=== PATIENT | male | born 1980 | race Caucasian/White ===

== ENCOUNTER 2017-11-23 10:06 | Inpatient (IN) | payer SELFPAY ==
[2017-11-23 10:47] LABS: Base Excess-Venous -23.5 mmol/L (0 (+/- 2.5)); CO2 Tension (PvCO2) 17.6 mmHg (41.0-51.0); Calcium, Ionized 0.85 mmol/L (1.12-1.32); Hemoglobin - Calc 9.9 g/dL (12.0-18.0); O2 Tension (PvO2) 81.9 mmHg (35.0-45.0); T. Carbon Dioxide 5.5 mmol/L (1.0-85.0); pH (Venous) 7.059 (7.35-7.45); vO2 Saturation-calc 90.4 % (94-98)
[2017-11-23 11:00] LABS: BUN (Urea Nitrogen) 114 mg/dL (8.9-20.6); Calc. Creatinine Clearance 0 mL/min (70-130); Calcium 7.2 mg/dL (7.8-10.44); Chloride 98 mmol/L (98-107); Estimated GFR-MDRD 13; Potassium 4.2 mmol/L (3.5-5.1); Sodium 133 mmol/L (136-145)
[2017-11-23 11:03] LABS: Troponin I 0.273 ng/mL (< 0.028)
[2017-11-23 11:05] LABS: Carbon Dioxide Less than 8 mmol/L (22-29); Glucose 1130 mg/dL (70-105)
[2017-11-23] MEDS ORDERED: Potassium Chloride 20 MEQ in Lactated Ringer's 1,000 ML IV ONE ×2 (11:30→15:15)
[2017-11-23 12:28] LABS: Lactic Acid 3.9 mmol/L (0.5-2.2)
[2017-11-23 13:06] LABS: Mean Corpuscular HGB CONC 30.5 g/dL (32.0-36.0); Mean Corpuscular Hemoglobin 32.5 pg (27.0-31.0); Mean Platelet Volume 8.3 fL (7.4-10.4); Platelet Count 287 thou/uL (130-400); RBC Distribution Width 12.7 % (11.5-14.5); Red Blood Cell (RBC) Count 3.08 mill/uL (4.70-6.10); White Blood Cell (WBC) Count 27.2 thou/uL (4.8-10.8)
[2017-11-23 13:47] LABS: Actual Bicarbonate (HCO3a) 11.4 mEq/L (22-28); Analyzer IN Cardio ER; Base Excess (BEa) -16.1 mEq/L (-2.0 to +3.0); CO2 Tension 32.9 mmHg (35.0-45.0); Calcium, Ionized 1.06 mmol/L (1.12-1.30); Carboxyhemoglobin (COHb) 0.2 gm% (0.0-3.0); Hemoglobin (Hb) 10.4 g/dL (14.0-18.0); O2 Tension (PaO2) 84.2 mmHg (80.0-100.0); Potassium - ABG Lab 5.02 mmol/L (3.70-5.30); pH, Arterial 7.16 (7.35-7.45)
[2017-11-23 13:48] LABS: ALV-art Gradient 24.405 (0-20); Puncture Site RRA
[2017-11-23 13:53] LABS: Band 12 % (5-11); Lymphocytes 7 % (21-51); MDiff Complete? YES; Monocytes 4 % (0-10); Neutrophil 77 % (42-75); PLT Morphology Comment Appears Adequate
[2017-11-23 14:02] LABS: Troponin I 0.646 ng/mL (< 0.028)
--- NOTE | 2017-11-23 14:29 | HP ---
DATE OF ADMISSION: 11/23/2017 PRIMARY CARE PHYSICIAN: [facility] call admission. REASON FOR ADMISSION: Acute kidney failure, severe diabetic ketoacidosis. HISTORY OF PRESENT ILLNESS: A 37-year-old male who has a history of diabetes on insulin, who was initially evaluated at [place] emergency room where he was taken for altered mental status. His blood sugar was running very high. The patient is completely confused at this point in our emergency room and he is not cooperative with giving history. As per emergency room record, the patient was released from [facility]. He was also admitted at another hospital for similar problem. At the [place] emergency room, he had routine blood test done, which showed leukocytosis, macrocytosis. He had severe metabolic acidosis with DKA and severe hyperglycemia and acute kidney failure. His urine drug screen was positive for methamphetamine. The patient was given IV fluid at the [place] emergency room and insulin drip was started. At [place] emergency room, he was given calcium gluconate 1 g, albuterol nebulization, insulin drip, Zofran, IV fluid. He was also given Narcan. He had initially severe hyperkalemia with potassium 8.2. In our emergency room, we noted that he was hypotensive. He was getting fluid and insulin drip. The patient was taken to [place] emergency room by his friends for altered mental status and he was having ketones smell. We noted that the patient was persistently hypotensive and ER physician spoke with area operations manager and the patient is planned for admission to ICU. We noted that the patient was making urine through the catheter. PAST MEDICAL HISTORY: Diabetes type 1, on insulin. PAST SURGICAL HISTORY: The patient is not able to provide any history at this point, so unable to review. PAST PSYCHIATRIC HISTORY: The patient is not able to provide any psychiatric history, so unable to review. SOCIAL HISTORY: As per report, the patient was released from [facility]. He was also hospitalized at another hospital. He has amphetamine positive in his urine drug screen. He is not providing any more history at this point. FAMILY HISTORY: Unable to obtain from the patient at this point because of altered mental status. ALLERGIES: As per report, the patient is allergic to CLINDAMYCIN. CURRENT HOME MEDICATIONS: As per report, the patient is taking lisinopril at home. EMERGENCY ROOM COURSE: The patient was given hyperkalemia cocktail treatment at [place] emergency room, insulin drip was started, given IV fluid, Narcan and Zofran. The patient is given Ringer lactate IV fluid in our emergency room. REVIEW OF SYSTEM: All review of system tried to review with patient but unable to review due to encephalopathy. PHYSICAL EXAMINATION: VITAL SIGNS: Currently, blood pressure 89/42, pulse 95, respiratory rate 18, temperature 94.1, saturation 100% on room air, weight 81.6 kg. GENERAL: The patient is hypotensive, ill appearing, disoriented. HEAD: Normocephalic, atraumatic. EYES: Pupils round and reactive to light. Extraocular muscle intact. ENT: Dry mucous membrane. No oral lesion, no pharyngeal erythema, no exudate. NECK: Supple. No JVD, no thyromegaly, no carotid bruit. LUNGS: Clear to auscultation without any rhonchi or rales. CARDIAC: S1, S2 regular. No gross murmur elicited. No gallop, no rub. ABDOMEN: Soft, bowel sounds present, nontender, nondistended. No organomegaly , no mass, no suprapubic tenderness. BACK: Unremarkable. No CVA tenderness. GENITOURINARY: Plummer catheter in place, draining clear urine. EXTREMITIES: Upper extremities, passive movement of all joints are normal. Lower extremities, no edema. Good distal pulsation. SKIN: The patient does have multiple tattoos on his skin, but no rash. HEMATOLOGICAL: No lymphadenopathy. PSYCHIATRIC: Unable to assess at this point because the patient is not cooperative. NEUROLOGIC: He is moving all four limbs, is confused and disoriented, but I could not elicit any focal neurological deficit. SIGNIFICANT LABORATORY DATA: EKG done at [place] emergency room, which showed T-wave peaked nonspecific ST-T changes. Finding consistent with hyperkalemia. Chest x-ray based on my review, no acute cardiopulmonary process. CBC initially WBC 29.9, hemoglobin 11.1, platelets 339,000 and subsequently WBC 27.2, hemoglobin 10, platelets 287,000. ABG, pH 7.16, CO2 32.9 , O2 84.2, bicarbonate 11.4, saturation 94.2%. BMP, sodium 122, potassium 8.2, chloride 95, carbon dioxide less than 8, BUN 122, creatinine 5.93, glucose 1586 , calcium 8.4, phosphorus 14.1, magnesium 4.0. LFT, AST 63, ALT 53, alkaline phosphatase 163, albumin 4.0. Troponin 0.273. Urinalysis consistent with glucose, ketones positive. Urine drug screen positive for methamphetamine. Serum drug screen negative. ASSESSMENT AND PLAN: 1. Acute metabolic encephalopathy, likely due to underlying metabolic derangement with diabetic ketoacidosis, acute kidney failure and abnormal electrolytes as well as hyperglycemic hyperosmolar state. The patient does not have any focal neurological deficit. We will monitor and try to correct metabolic parameters. 2. Acute kidney failure, likely due to dehydration, secondary to osmotic diuresis. The patient will have urine sodium, urine creatinine, urine protein checked. Renal ultrasound will be obtained. Nephrology will be consulted. We will monitor renal function. We will avoid nephrotoxin agent. We will monitor input output chart. 3. Diabetic ketoacidosis with hyperglycemic hyperosmolar state. The patient will be admitted to CCU for close monitoring. We will start insulin drip and manage with diabetic ketoacidosis protocol orders. We will monitor BMP, electrolytes, ketones periodically and change IV fluid whenever blood sugar improves to dextrose solution to correct his ketosis. 4. Elevated anion gap metabolic acidosis. The patient may need bicarbonate. Nephrology is consulted. 5. Abnormal electrolytes. He has hyponatremia, hyperkalemia, hyperphosphatemia and hypermagnesemia, all related with severe dehydration and renal failure. We will monitor electrolytes closely and we are consulting Nephrology for management. 6. Elevated troponin, likely due to demand ischemia. We will monitor cardiac enzymes. Abnormal LFT. We will repeat LFT again tomorrow. We will check hepatitis screen. 7. Microcytic anemia. Will be given folic acid, vitamin B12 and thiamine therapy. 8. Leukocytosis, likely related with stress response from diabetic ketoacidosis. We will follow up on culture result. 9. Methamphetamine positive. The patient will be given counseling to avoid other illicit drug abuse. 10. Deep venous thrombosis prophylaxis, heparin 5000 units subcu twice daily. 11. Gastrointestinal prophylaxis, Protonix 40 mg IV daily. 12. Code status: The patient is full code. The patient does not have any surrogate decision maker. 13. NSTEMI: likely demand ischemia, will get echo, consult cardiology, continue aspirin, check lipid profile tomorrow Disposition plan based on clinical course. We are expecting the patient's stay in hospital more than 2 midnights. I have spent 35 minutes in the emergency room to provide critical care to this patient. RICHIE
[2017-11-23] MEDS ORDERED: Eucerin (Mineral Oil/Petrolatum,White) 30 gm Jar TOP PRN (15:21)
[2017-11-23] MEDS ORDERED: Milk Of Magnesia 30 ML UDCUP PO PRN (15:21)
[2017-11-23] MEDS ORDERED: Acetaminophen 325 MG TAB PO PRN (15:21)
[2017-11-23] MEDS ORDERED: Dextrose 5 %-0.45 % NaCl 1,000 ML IV PRN (15:21)
[2017-11-23] MEDS ORDERED: CCU Electrolyte Replacement 1 EACH IVPB ONE (15:21)
[2017-11-23] MEDS ORDERED: Loperamide HCl 2 MG CAP PO PRN (15:21)
[2017-11-23] MEDS ORDERED: Sodium Chloride 0.65% Nasal 44 ML BOT EA NARE PRN (15:21)
[2017-11-23] MEDS ORDERED: D5 1/2 NS w/20 mEq KCL 1,000 ML IV PRN (15:21)
[2017-11-23] MEDS ORDERED: Diabetic Tussin 200 MG/10 ML UDCUP PO PRN (15:21)
[2017-11-23] MEDS ORDERED: Loratadine 10 MG TAB PO PRN (15:21)
[2017-11-23] MEDS ORDERED: NS 0.9% w/ 20 MEQ KCL 1,000 ML IV PRN ×2 (15:21)
[2017-11-23] MEDS ORDERED: Ondansetron ODT 4 MG TAB PO PRN (15:21)
[2017-11-23] MEDS ORDERED: Chloraseptic Spray 180 ml Bottle PO PRN (15:21)
[2017-11-23] MEDS ORDERED: Artificial Tears 18 DROP/0.9 ML EA EYE PRN (15:21)
[2017-11-23] MEDS ORDERED: Metoclopramide HCl 10 MG/2 ML VIAL IVP PRN (15:21)
[2017-11-23] MEDS ORDERED: Sodium Chloride 0.9% 1,000 ML IV PRN ×4 (15:21)
[2017-11-23] MEDS ORDERED: Senokot 8.6 MG TAB PO PRN (15:21)
[2017-11-23] MEDS ORDERED: Potassium Chloride 40 MEQ in Premix Bag 1 BAG IVPB PRN (15:44)
[2017-11-23] MEDS ORDERED: Potassium Chloride 40 MEQ in Sodium Chloride 0.9% 250 ML 250 ML IVPB PRN (15:44)
[2017-11-23] MEDS ORDERED: Potassium Phosphate 9 MMOL in Sodium Chloride 0.9% 100 ML IVPB PRN (15:44)
[2017-11-23] MEDS ORDERED: Potassium Chloride 20 MEQ TAB PO PRN (15:44)
[2017-11-23] MEDS ORDERED: Potassium Phosphate 12 MMOL in Sodium Chloride 0.9% 250 ML 250 ML IV PRN (15:44)
[2017-11-23] MEDS ORDERED: Magnesium 2 GM/NS 0.9% 100 ML 2 GM in Premix Bag 1 BAG IVPB PRN (15:44)
[2017-11-23] MEDS ORDERED: Potassium Phosphate 15 MMOL in Sodium Chloride 0.9% 250 ML 250 ML IV PRN (15:44)
[2017-11-23] MEDS ORDERED: CCU ELECTROLYTE REPLACEMENT PROTOCOL FS PRN (15:44)
[2017-11-23] MEDS ORDERED: Magnesium Oxide 400 MG TAB PO PRN ×2 (15:44)
--- NOTE | 2017-11-23 16:39 | CON ---
DATE OF CONSULTATION: 11/23/2017 CARDIOLOGY CONSULTATION REASON FOR CONSULTATION: Elevated troponin. HISTORY OF PRESENT ILLNESS: Mr. Florentino is a 37-year-old white gentleman who comes to the hospital for altered mental status. [facility] and was taken to the [facility] [facility] as he was found confused. He has a history of diabetes insulin-dependent and he was found to have s ugars in the 1000 range with an anion gap metabolic acidosis and he was transferred over for treatmen t of DKA. He also had acute kidney injury and troponins were drawn and they were likely elevated. D rug screen was also positive for methamphetamines. Currently, he is confused. I do not know how con fused he really is. He was able to tell me where he was and his name without much hesitancy. When arabella traore asked him the date, he said 2019. PAST MEDICAL HISTORY: 1. Type 1 diabetes. 2. Per ER review, there is a history of apparently a CVA in the past and a cardiac stent as well. 3. Also, apparently a history of hypertension. PAST SURGICAL HISTORY: None per chart review. OUTPATIENT MEDICATIONS: Per chart review, only lisinopril 5 mg a day, but he is unable to tell me an ything more than or even confirm that lisinopril is one of his medications. ALLERGIES: CLINDAMYCIN apparently per chart review. FAMILY HISTORY: Unobtainable. SOCIAL HISTORY: Unobtainable, but he has had a positive urine drug screen for amphetamines. REVIEW OF SYSTEMS: Unobtainable as the patient is confused. PHYSICAL EXAMINATION: VITAL SIGNS: Temperature 94.1, respiration rate 18, blood pressure 90/42, pulse of 89, satting 100% on room air. GENERAL: Awake, but only oriented to person and place with some shaking with no distress. HEENT: Normocephalic, atraumatic. NECK: Supple. LUNGS: Clear. CARDIOVASCULAR: S1, S2. No S3, S4. No murmurs. ABDOMEN: Soft. Positive bowel sounds. EXTREMITIES: No edema. Very unkempt dirty nails and large blisters on both plantar aspects of the f eet. LABORATORY WORK: Reviewed. CBC with a white count of 27, hemoglobin of 10, hematocrit of 32, platel et count of 287,000. ABG was reviewed, pH is 7.1. Chemistries with a sodium of 133, potassium is 4. 2, chloride of 98, carbon dioxide less than 8, BUN of 114, creatinine of 4.86, glucose of 1130, lacti c acid of 3.9, calcium of 7.2. Troponin of 0.2 initially, up to 0.6 the second one. IMAGING: Chest x-ray was reviewed, no acute process. ASSESSMENT: 1. Elevated troponins: Likely demand ischemia from his diabetic ketoacidosis. 2. Diabetic ketoacidosis. Per primary team. 3. Metabolic acidosis. 4. Elevated white count. 5. Altered mentation. 6. Substance abuse. PLAN: Currently, his troponin elevation is minimal and unlikely to be an issue in his current clinic al status. We will get an echocardiogram to assess LV function and valvular structures. Otherwise, management of DKA per primary team.
[2017-11-23 17:18] VITALS: BMI 23.8
[2017-11-23] MEDS: Ondansetron HCl/PF 4 MG/2 ML Vial IVP PRN (17:27)
[2017-11-23] MEDS ORDERED: 1/2 NS w/KCL 20 mEq 1,000 ML IV SCH (17:45)
[2017-11-23 17:47] LABS: Anion Gap 23 mmol/L (10-20); BUN (Urea Nitrogen) 103 mg/dL (8.9-20.6); Calc. Creatinine Clearance 23 mL/min (70-130); Calcium 7.8 mg/dL (7.8-10.44); Carbon Dioxide 17 mmol/L (22-29); Chloride 108 mmol/L (98-107); Estimated GFR-MDRD 17; Phosphorus 5.1 mg/dL (2.3-4.7); Sodium 143 mmol/L (136-145)
[2017-11-23 17:53] LABS: Glucose 713 mg/dL (70-105)
--- NOTE | 2017-11-23 18:20 | ULT ---
ULTRASOUND RETROPERITONEUM COMPLETE: (RENAL) HISTORY: Acute renal failure. FINDINGS: The right kidney measures 11.5 x 5 x 5.5 cm. The left kidney measures 10.5 x 4.5 x 6 cm. Both kidne ys have normal cortical thickness and normal cortical echogenicity. There is no hydronephrosis. The re is a Plummer catheter in an empty urinary bladder. IMPRESSION: 1) Normal sonographic appearance of the kidneys. 2) Plummer catheter within empty bladder. [place] POS: LOLIS
[2017-11-23] MEDS: Sodium Chloride 0.45% 1,000 ML IV SCH ×2 (18:21→22:04)
[2017-11-23 21:29] LABS: Anion Gap 18 mmol/L (10-20); BUN (Urea Nitrogen) 94 mg/dL (8.9-20.6); Calc. Creatinine Clearance 27 mL/min (70-130); Calcium 7.6 mg/dL (7.8-10.44); Carbon Dioxide 21 mmol/L (22-29); Chloride 111 mmol/L (98-107); Estimated GFR-MDRD 20; Glucose 465 mg/dL (70-105); Potassium 4.8 mmol/L (3.5-5.1); Sodium 145 mmol/L (136-145)
[2017-11-23] MEDS: Heparin 5,000 UNITS/ML VIAL SC SCH (22:07)
--- NOTE | 2017-11-23 23:55 | CON ---
DATE OF CONSULTATION: 11/23/2017 Mr. Florentino is a 37-year-old male, who is not giving a great history, but can converse as long as he is continuously stimulated. He has a long history of type 1 diabetes. He says he was diagnosed at age 12. Apparently, he was re leased from [facility] recently and was taken to the [place] [facility] for confusion. He is found to be acidemic and hyperosmolar. He denied drug use, but had a drug screen positive for methamphetamines. PAST MEDICAL HISTORY: Remarkable for coronary artery disease with a stent in the past reportedly and hypertension. He denied smoking, drinking or drug use, but as I mentioned, his drug screen was positive. FAMILY HISTORY: Unknown. PHYSICAL EXAMINATION: VITAL SIGNS: Blood pressure is 113/49, heart rate is 99, respiratory rate is 30, oximetry is 96. HEENT: Pupils are equal. Sclerae is anicteric. He has extensive tattooing. LUNGS: His lungs are clear. HEART: Regular rhythm. ABDOMEN: Soft and nontender. EXTREMITIES: Without asymmetry. LABORATORY AND X-RAY FINDINGS: White count 27.2, hemoglobin 10, platelets 287,000. PH after lunch t myrtle 7.16, CO2 of 32, pO2 of 84, that was an arterial blood gas. Venous blood gas done 10:45 this mo rning was 7.05. Sodium 143, potassium 5, chloride 108, bicarbonate 17, BUN 103, creatinine of 4.06. Glucose was over 1000 in [place] reportedly. IMPRESSION: 1. Diabetic ketoacidosis. 2. Severe intravascular volume depletion with hyperosmolar state secondary to that with probably yoav e starvation, ketosis and hypoperfusion. Lactic acidosis mixed in. Plan would be to continue with an insulin drip and continue with aggressive hydration. There is no h urry to correct his blood glucose, and in fact, we should correct his blood glucose slowly. His 1720 blood glucose is 713. With ongoing hydration, this will continue to come down. His insulin drip wa s at 10 units an hour, I cut it back to 7 units an hour when he arrived in the Critical Care Unit. Critical care time 40 minutes.
--- NOTE | 2017-11-24 00:16 | CON ---
DATE OF CONSULTATION: 11/23/2017 CONSULTING PHYSICIAN: Cathy Amin MD REASON FOR CONSULTATION: Acute kidney injury. REASON FOR ADMISSION: Diabetic ketoacidosis. HISTORY OF PRESENT ILLNESS: A 37-year-old male with history of type 1 diabetes, on insulin, came to the hospital with above complaints of being weakness and slightly confused and was found to have DKA and also elevated creatinine and acute kidney injury, and Nephrology is consulted. The patient is sl ightly confused, was seen in ICU today. No nausea, vomiting. The patient's drug screen was positive for methamphetamine. No chest pain or palpitation reported. No shortness of breath. No nausea or vomiting. PAST MEDICAL HISTORY: Positive for type 1 diabetes. PAST SURGICAL HISTORY: None per records. HOME MEDICATIONS: Lisinopril and insulin. ALLERGIES: CLINDAMYCIN. SOCIAL HISTORY: The patient was released from alf and amphetamine-positive drug screen and tobacc o use present. FAMILY HISTORY: No history of kidney disease. REVIEW OF SYSTEMS: Could not be obtained as the patient is slightly confused and no family available . PHYSICAL EXAMINATION: GENERAL: This is a well-built male in no apparent distress. VITAL SIGNS: Temperature 98.1, pulse 94, respiratory rate 18, blood pressure 120/56. HEENT: Atraumatic, normocephalic. Oral mucosa dry. NECK: Supple. CARDIOVASCULAR: S1, S2 heard. Rate and rhythm are regular. RESPIRATORY: Clear. GASTROINTESTINAL: Abdomen is soft. MUSCULOSKELETAL: 1+ edema. DERMATOLOGIC: No skin rash. Tattoos present. NEUROLOGIC: Confused. LABORATORY DATA: Hemoglobin is 10.1, potassium 4.8, BUN is 94, creatinine is 3.5 from 4.8 initially, bicarbonate 21 from 17. ASSESSMENT AND PLAN: 1. Acute kidney injury. It seems like getting better with IV hydration. No acute indication for di alysis. 2. Hyperkalemia, getting better. 3. Metabolic acidosis, better. 4. Edema, controlled. 5. Anemia, mild. 6. Leukocytosis. 7. Diabetic ketoacidosis. Continue supportive care. 8. Hyperphosphatemia. 9. Hypocalcemia. Continue supportive care. No acute indication for dialysis. We will continue to monitor renal funct ion and continue hydration as tolerated.
[2017-11-24] MEDS: Ondansetron HCl/PF 4 MG/2 ML Vial IVP PRN ×2 (00:20→08:40)
[2017-11-24] MEDS: Sodium Chloride 0.45% 1,000 ML IV SCH ×3 (02:08→08:41)
[2017-11-24 05:42] LABS: Hemoglobin A1c 10.8 % (4.0-6.0)
[2017-11-24 06:03] LABS: Anion Gap 12 mmol/L (10-20); BUN (Urea Nitrogen) 75 mg/dL (8.9-20.6); Calc. Creatinine Clearance 37 mL/min (70-130); Calcium 7.5 mg/dL (7.8-10.44); Carbon Dioxide 24 mmol/L (22-29); Chloride 112 mmol/L (98-107); Estimated GFR-MDRD 28; Glucose 166 mg/dL (70-105); Magnesium 2.8 mg/dL (1.6-2.6); Potassium 4.2 mmol/L (3.5-5.1); Sodium 144 mmol/L (136-145)
[2017-11-24 06:21] LABS: HBCM Index 0.07 S/CO (0-0.79); HBSAg Index 0.21 S/CO (0-0.99); Hep A IgM AB Non-Reactive (NonReactive); Hep A IgM S/CO 0.13 S/CO (0-0.79); Hep B Surf Ag Non-Reactive S/CO (NonReactive); Hep C IgG Ab Non-Reactive (NonReactive); Hep C Index 0.04 S/CO (0-0.79); Hepatitis B Core IGM Abs Non-Reactive (NonReactive)
[2017-11-24 06:53] LABS: Hemoglobin 9.7 g/dL (14.0-18.0); Mean Corpuscular HGB CONC 32.8 g/dL (32.0-36.0); Mean Corpuscular Hemoglobin 31.7 pg (27.0-31.0); Mean Corpuscular Volume 96.8 fL (78.0-98.0); Mean Platelet Volume 7.1 fL (7.4-10.4); Platelet Count 258 thou/uL (130-400); RBC Distribution Width 12.9 % (11.5-14.5); Red Blood Cell (RBC) Count 3.05 mill/uL (4.70-6.10); White Blood Cell (WBC) Count 21.2 thou/uL (4.8-10.8)
[2017-11-24 08:24] LABS: Band 16 % (5-11); Eosinophils 1 % (0-10); Lymphocytes 7 % (21-51); MDiff Complete? YES; Monocytes 4 % (0-10); Neutrophil 72 % (42-75); PLT Morphology Comment Appears Adequate; Polychromasia SLIGHT = 2-3 cells (100X) (0-2/hpf)
[2017-11-24] MEDS: Heparin 5,000 UNITS/ML VIAL SC SCH ×2 (08:40→21:53)
[2017-11-24] MEDS: FLUoxetine HCl 20 MG CAP PO SCH (08:40)
[2017-11-24] MEDS: Folic Acid 1 MG TAB PO SCH (08:40)
[2017-11-24] MEDS: Cyanocobalamin (Vitamin B-12) 1,000 MCG TAB PO SCH (08:40)
[2017-11-24] MEDS ORDERED: Pantoprazole 40 MG VIAL IVP SCH (09:00)
--- NOTE | 2017-11-24 10:23 | PRG ---
DATE OF SERVICE: 11/24/2017 Dc Florentino is more alert. PHYSICAL EXAMINATION: VITAL SIGNS: Vital signs are stable. Heart rate is 102, oximetry is 94, blood pressure 138/79. Int lucas and output is reportedly negative 1818. He only has 731 mL reported in, but this really does not make sense given the IV rate yesterday was 250 mL per hour. LUNGS: Clear. HEART: Regular rhythm. ABDOMEN: Soft. LABORATORY DATA: White count is 21.2, hemoglobin 9.7, platelets 258. Electrolytes are normal. Anio n gap is 8, BUN 75, creatinine 2.57. It was 4.86 when he was admitted. IMPRESSION: 1. Severe intravascular volume depletion. 2. Hyperosmolar state on admission secondary to noncompliance with insulin. 3. Diabetic ketoacidosis secondary to noncompliance with insulin. 4. Methamphetamine present on drug screen yesterday morning. PLAN: Continue with inpatient insulin. He is probably adequately hydrated at this point. His IV fl uids can be cut back. He can be transferred out of the Critical Care Unit to a medical bed. His tanya al function should continue to improve. Prognosis is quite guarded given his hemoglobin A1c of 10.8 and his drug screen positive for methamphetamine.
[2017-11-24] MEDS ORDERED: Dextrose 5% in Water 1,000 ML IV PRN (10:52)
[2017-11-24] MEDS ORDERED: Dextrose 50% Abboject 50 ML SYRINGE SLOW IVP PRN (10:52)
--- NOTE | 2017-11-24 10:53 | PDOC.PN ---
- Subjective Encounter Start Date: 11/24/17 Encounter Start Time: 10:00 -: old records requested/rev Patient seen and examined. No new complaints. No overnight events no fever, no vomiting, denies abdominal pain - Objective Resuscitation Status: Resuscitation Status FULL:Full Resuscitation MAR Reviewed: Yes Vital Signs & Weight: Vital Signs (12 hours) Temp Pulse Ox 11/24/17 08:00 94 L 11/24/17 07:00 98.0 F 11/24/17 04:00 98.1 F 11/24/17 00:00 98.4 F Weight Weight 147 lb 11.355 oz Most Recent Monitor Data Heart Rate from ECG 108 NIBP 152/97 NIBP BP-Mean 115 Respiration from ECG 20 SpO2 97 I&O: 11/23/17 11/24/17 11/25/17 06:59 06:59 06:59 Intake Total 731 240 Output Total 2550 250 Balance -1819 -10 Result Diagrams: 11/24/17 05:17 11/24/17 05:17 Additional Labs: Accuchecks 11/24/17 11/24/17 11/24/17 10:32 08:37 06:23 POC Glucose 225 H 208 H 187 H 11/24/17 11/24/17 11/24/17 05:17 04:39 03:29 POC Glucose 162 H 176 H 189 H 11/24/17 11/24/17 11/24/17 02:31 01:31 00:29 POC Glucose 228 H 241 H 324 H 11/23/17 11/23/17 11/23/17 23:47 22:35 21:33 POC Glucose 287 H 359 H 415 H 11/23/17 11/23/17 11/23/17 20:35 19:42 18:25 POC Glucose 418 H 473 H 528 H 11/23/17 11/23/17 11/23/17 16:06 12:51 11:58 POC Glucose Greater than 550 H* Greater than 550 H* Greater than 550 H* 11/23/17 10:13 POC Glucose Greater than 550 H* EKG Reviewed by me: Yes (nsr) Phys Exam - Physical Examination Constitutional: NAD HEENT: PERRLA, moist MMs, sclera anicteric Neck: no JVD, supple Respiratory: no wheezing, no rales, no rhonchi Cardiovascular: RRR, no significant murmur, no rub Gastrointestinal: soft, non-tender, no distention, positive bowel sounds Musculoskeletal: no edema, pulses present Neurological: non-focal, normal sensation, moves all 4 limbs Psychiatric: normal affect, A&O x 3 Skin: no rash, normal turgor Dx/Plan (1) Abnormal LFTs Code(s): R94.5 - ABNORMAL RESULTS OF LIVER FUNCTION STUDIES Status: Acute (2) Abnormal blood electrolyte level Code(s): E87.8 - OTH DISORDERS OF ELECTROLYTE AND FLUID BALANCE, NEC Status: Acute (3) Acute kidney failure Status: Acute (4) Amphetamine abuse Code(s): F15.10 - OTHER STIMULANT ABUSE, UNCOMPLICATED Status: Acute (5) DKA, type 1 Code(s): E10.10 - TYPE 1 DIABETES MELLITUS WITH KETOACIDOSIS WITHOUT COMA Status: Acute (6) Demand ischemia of myocardium Code(s): I24.8 - OTHER FORMS OF ACUTE ISCHEMIC HEART DISEASE Status: Acute (7) Leucocytosis Code(s): D72.829 - ELEVATED WHITE BLOOD CELL COUNT, UNSPECIFIED Status: Acute (8) Severe dehydration Code(s): E86.0 - DEHYDRATION Status: Acute (9) Anxiety and depression Code(s): F41.9 - ANXIETY DISORDER, UNSPECIFIED; F32.9 - MAJOR DEPRESSIVE DISORDER, SINGLE EPISODE, UNSPECIFIED Status: Chronic (10) Diabetes type 1, controlled Code(s): E10.9 - TYPE 1 DIABETES MELLITUS WITHOUT COMPLICATIONS Status: Chronic (11) GERD (gastroesophageal reflux disease) Code(s): K21.9 - GASTRO-ESOPHAGEAL REFLUX DISEASE WITHOUT ESOPHAGITIS Status: Chronic (12) Macrocytic anemia Code(s): D53.9 - NUTRITIONAL ANEMIA, UNSPECIFIED Status: Chronic - Plan cont current plan of care * anion gap closed, now will dc insulin drip * will transfer to tele today * now start hyperglycemia protocol treatment * check accucheck q 4 hourly * start lantus 10 unit sc bid * repeat labs tomorrow * continue NS at 100 ml per hour * medication reviewed as below * symptomatic treatment * start 1800 kcal ada diet. Review of Systems - Review of Systems ENT: negative: Ear Pain, Ear Discharge, Nose Pain, Nose Discharge, Nose Congestion, Mouth Pain, Mouth Swelling, Throat Pain, Throat Swelling, Other Respiratory: negative: Cough, Dry, Shortness of Breath, Hemoptysis, SOB with Excertion, Pleuritic Pain, Sputum, Wheezing Cardiovascular: negative: chest pain, palpitations, orthopnea, paroxysmal nocturnal dyspnea, edema, light headedness, other Gastrointestinal: negative: Nausea, Vomiting, Abdominal Pain, Diarrhea, Constipation, Melena, Hematochezia, Other Genitourinary: negative: Dysuria, Frequency, Incontinence, Hematuria, Retention , Other Musculoskeletal: negative: Neck Pain, Shoulder Pain, Arm Pain, Back Pain, Hand Pain, Leg Pain, Foot Pain, Other - Medications/Allergies Allergies/Adverse Reactions: Allergies Allergy/AdvReac Type Severity Reaction Status Date / Time clindamycin Allergy Verified 11/23/17 17:31 STERIODS Allergy Severe THROAT Uncoded 11/24/17 07:07 CLOSES UP, PER PT Medications: Current Medications Acetaminophen (Tylenol) 650 mg PO Q4H PRN PRN Reason: Headache/Fever or Pain Artificial Tears (Tears Naturale) 0 drop EA EYE PRN PRN PRN Reason: Dry Eyes Cyanocobalamin (Vitamin B-12) 1,000 mcg PO DAILY [facility] Last Admin: 11/24/17 08:40 Dose: 1,000 mcg Fluoxetine HCl (Prozac) 40 mg PO DAILY [facility] Last Admin: 11/24/17 08:40 Dose: 40 mg Folic Acid (Folvite) 1 mg PO DAILY [facility] Last Admin: 11/24/17 08:40 Dose: 1 mg Guaifenesin (Robitussin Sf) 200 mg PO Q4H PRN PRN Reason: Cough Heparin Sodium (Porcine) (Heparin) 5,000 units SC BID [facility] Last Admin: 11/24/17 08:40 Dose: 5,000 units Dextrose/Sodium Chloride (D5 1/2 Ns) 1,000 mls @ 250 mls/hr IV .Q4H PRN; Protocol PRN Reason: Step 4 of DKA Protocol Potassium Chloride/Dextrose/Sod Cl (D5 1/2 Ns W/20 Meq Kcl) 1,000 mls @ 250 mls /hr IV .Q4H PRN; Protocol PRN Reason: Step 4 of DKA Protocol Last Admin: 11/24/17 04:58 Dose: 1,000 mls Insulin Human Regular 100 (units/ Sodium Chloride) 101 mls @ 0 mls/hr IVPB INF JOSE MIGUEL; Protocol Last Admin: 11/23/17 18:20 Dose: 101 mls Sodium Chloride (Normal Saline 0.9%) 1,000 mls @ 500 mls/hr IV .Q2H PRN; Protocol PRN Reason: Step 1 of DKA Protocol Sodium Chloride (Normal Saline 0.9%) 1,000 mls @ 1,000 mls/hr IV .Q1H PRN; Protocol PRN Reason: Step 1 of DKA Protocol Sodium Chloride (Normal Saline 0.9%) 1,000 mls @ 250 mls/hr IV .Q4H PRN; Protocol PRN Reason: SEE STEP 3 OF DKA PROTOCOL Sodium Chloride (Normal Saline 0.9%) 1,000 mls @ 500 mls/hr IV .Q2H PRN; Protocol PRN Reason: Step 2 of DKA Protocol Potassium Chloride/Sodium Chloride (Ns 0.9% W/ 20 Meq Kcl) 1,000 mls @ 500 mls/ hr IV .Q2H PRN; Protocol PRN Reason: Step 2 of DKA Protocol Potassium Chloride/Sodium Chloride (Ns 0.9% W/ 20 Meq Kcl) 1,000 mls @ 250 mls/ hr IV .Q4H PRN; Protocol PRN Reason: SEE STEP 3 OF DKA PROTOCOL Potassium Chloride 40 meq/ (Sodium Chloride) 270 mls @ 135 mls/hr IVPB ASDIR PRN PRN Reason: FOR SERUM K+ 2.5 - 3.5 Potassium Chloride 40 meq/ (Device) 100 mls @ 50 mls/hr IVPB ASDIR PRN PRN Reason: FOR SERUM K+ 2.5 - 3.5 Magnesium Sulfate 1 gm/ Sodium (Chloride) 102 mls @ 102 mls/hr IV PRN PRN PRN Reason: MAG LEVEL 1.4 - 2.0 Magnesium Sulfate 2 gm/ Device 100 mls @ 100 mls/hr IVPB ASDIR PRN PRN Reason: MAGNESIUM < 1.4 Potassium Phosphate 9 mmol/ (Sodium Chloride) 103 mls @ 25.75 mls/hr IVPB ASDIR PRN PRN Reason: Phosphate 1.0-1.8 Potassium Phosphate 12 mmol/ (Sodium Chloride) 254 mls @ 63.5 mls/hr IV ASDIR PRN PRN Reason: Serum phosphate 0.5-0.9 Potassium Phosphate 15 mmol/ (Sodium Chloride) 255 mls @ 63.75 mls/hr IV ASDIR PRN PRN Reason: Serum Phos < 0.5 Sodium Chloride (1/2 Normal Saline) 1,000 mls @ 250 mls/hr IV .Q4H [facility] Last Admin: 11/24/17 08:41 Dose: Not Given Loperamide HCl (Imodium) 2 mg PO PRN PRN PRN Reason: Diarrhea/Loose Stools Loratadine (Claritin) 10 mg PO DAILYPRN PRN PRN Reason: Sinus Symptoms Magnesium Hydroxide (Milk Of Magnesium) 30 ml PO DAILYPRN PRN PRN Reason: Constipation Magnesium Oxide (Magnesium Oxide) 400 mg PO BIDPRN PRN PRN Reason: FOR SERUM MAG 1.4 - 2.0 Magnesium Oxide (Magnesium Oxide) 800 mg PO PRN PRN PRN Reason: FOR SERUM MAG < 1.4 Metoclopramide HCl (Reglan) 5 mg IVP Q4H PRN PRN Reason: Nausea Mineral Oil/White Petrolatum (Eucerin Cream) 0 gm TOP BIDPRN PRN PRN Reason: Dry Skin Miscellaneous Medication (Phos-Nak) 1 pkt PO TIDPRN PRN PRN Reason: FOR PHOS LEVEL 1.0 - 1.8 Miscellaneous Medication (Phos-Nak) 2 pkt PO TIDPRN PRN PRN Reason: FOR PHOS LEVEL 0.5 - 1.0 Ccu Electrolyte (Replacement Protocol) 0 each FS PRN PRN PRN Reason: FOR ELECTROLYTE REPLACEMENT Ondansetron HCl (Zofran Odt) 4 mg PO Q6H PRN PRN Reason: Nausea/Vomiting Ondansetron HCl (Zofran) 4 mg IVP Q6H PRN PRN Reason: Nausea/Vomiting Last Admin: 11/24/17 08:40 Dose: 4 mg Pantoprazole Sodium (Protonix) 40 mg IVP DAILY [facility] Last Admin: 11/24/17 08:40 Dose: 40 mg Phenol (Chloraseptic [place] 180 Ml Bot) 0 ml PO PRN PRN PRN Reason: Sore Throat Potassium Chloride (K-Dur) 40 meq PO ASDIR PRN PRN Reason: FOR SERUM K+ 2.5 - 3.5 Potassium Chloride (Klor-Con) 40 meq PER TUBE ASDIR PRN PRN Reason: FOR SERUM K+ 2.5-3.5 Senna (Senokot) 2 tab PO HSPRN PRN PRN Reason: Constipation Sodium Chloride ([place] Nasal [place] 0.65%) 0 ml EA NARE QIDPRN PRN PRN Reason: Nasal Congestion Thiamine HCl (Thiamine) 100 mg PO DAILY JOSE MIGUEL Last Admin: 11/24/17 08:40 Dose: 100 mg
[2017-11-24] MEDS ORDERED: Insulin Glargine 10 UNITS in Pre-Filled Syringe 1 EACH SC SCH (11:00)
[2017-11-24] MEDS: Sodium Chloride 0.9% 1,000 ML IV SCH ×2 (11:53→21:53)
[2017-11-24] MEDS: HumaLOG 300 UNITS/3 ML VIAL SC PRN ×2 (14:59→21:54)
--- NOTE | 2017-11-24 15:16 | PDOC.CTH ---
Cardiology Progress Note - Subjective No new issues. - Objective Vital Signs Temp Pulse Ox 11/24/17 12:00 98.0 F 11/24/17 08:00 94 L 11/24/17 07:00 98.0 F 11/24/17 04:00 98.1 F Admit Weight 147 lb Weight 147 lb 11.355 oz 11/23/17 11/24/17 11/25/17 06:59 06:59 06:59 Intake Total 731 300 Output Total 2550 650 Balance -1819 -350 - Physical Examination General/Neuro: NAD Neck: no JVD present Lungs: CTA, unlabored respirations Heart: RRR Abdomen: NT/ND Extremities: other: (no edema) - Telemetry Telemetry Rhythm: S Tach - Labs Result Diagrams: 11/24/17 05:17 11/24/17 05:17 Troponin/CKMB Troponin I 0.646 ng/mL (< 0.028) H* 11/23/17 13:29 - Assessment/Plan 1. DKA. 2. NSTEMI, demand ischemia from DKA. PLAN: - Echocardiogram pending. - Continue Therapies for DKA.
--- NOTE | 2017-11-24 19:30 | PRG ---
DATE OF SERVICE: 11/24/2017 SUBJECTIVE: Patient was seen and examined at bedside and overnight events noted. Patient denies any shortness of breath or chest pain or palpitation. No history of nausea or vomiting or diarrhea or f ever or chills or cramps. OBJECTIVE: GENERAL: This is a well-built male in no apparent distress. VITAL SIGNS: Temperature 97, pulse 104, respiratory rate 18, blood pressure 140/84. HEENT: Atraumatic, normocephalic. Oral mucosa is moist. NECK: Supple CARDIOVASCULAR: S1, S2 heard. Rate and rhythm regular. RESPIRATORY: Clear to auscultation. GASTROINTESTINAL: Abdomen is soft. MUSCULOSKELETAL: No tenderness, no edema. DERMATOLOGIC: No skin rash. NEUROLOGIC: Alert, awake, and oriented x3. No focal neurologic deficits. Moving all the extremitie s. PSYCHIATRIC: Mood and affect normal. LABORATORY DATA: Potassium 4.2, BUN is 75, creatinine is 2.5. ASSESSMENT AND PLAN: 1. Acute kidney injury. Creatinine getting better. 2. Edema, controlled. 3. Hypertension, stable. 4. Diabetic ketoacidosis and metabolic acidosis. Labs are getting better. Continue current management. Avoid nephrotoxins. We will follow. Rule ou t infection.
[2017-11-24] MEDS ORDERED: Sodium Chloride 0.9% 30 ML ONE (20:39)
[2017-11-24] MEDS: Insulin Glargine 10 UNITS in Pre-Filled Syringe 1 EACH SC SCH (21:53)
[2017-11-25] MEDS: HumaLOG 300 UNITS/3 ML VIAL SC PRN ×3 (00:15→22:07)
[2017-11-25] MEDS: Ondansetron HCl/PF 4 MG/2 ML Vial IVP PRN (04:32)
[2017-11-25 05:56] LABS: #Lymphocytes 0.9 thou/uL (1.20-3.40); #Monocytes 0.7 thou/uL (0.11-0.59); #Neutrophils 9.5 thou/uL (1.40-6.50); %Basophils 0.1 % (0.0-1.0); %Eosinophils 0.1 % (0.0-10.0); %Neutrophils 85.8 % (42.0-75.0); Hemoglobin 10.6 g/dL (14.0-18.0); Mean Corpuscular HGB CONC 32.4 g/dL (32.0-36.0); Mean Platelet Volume 7.4 fL (7.4-10.4); Platelet Count 236 thou/uL (130-400); RBC Distribution Width 13.2 % (11.5-14.5); Red Blood Cell (RBC) Count 3.29 mill/uL (4.70-6.10); White Blood Cell (WBC) Count 11.1 thou/uL (4.8-10.8)
[2017-11-25 06:21] LABS: Anion Gap 12 mmol/L (10-20); BUN (Urea Nitrogen) 36 mg/dL (8.9-20.6); Calc. Creatinine Clearance 62 mL/min (70-130); Calcium 8.5 mg/dL (7.8-10.44); Carbon Dioxide 23 mmol/L (22-29); Chloride 114 mmol/L (98-107); Estimated GFR-MDRD 49; Glucose 231 mg/dL (70-105); Magnesium 2.3 mg/dL (1.6-2.6); Phosphorus 1.7 mg/dL (2.3-4.7); Potassium 5.2 mmol/L (3.5-5.1); Sodium 144 mmol/L (136-145)
[2017-11-25] MEDS: Sodium Chloride 0.9% 1,000 ML IV SCH (06:23)
[2017-11-25] MEDS ORDERED: SODIUM CHLORIDE IVPB SCH (07:00)
[2017-11-25] MEDS ORDERED: SODIUM PHOSPHATE IVPB SCH (07:00)
[2017-11-25] MEDS ORDERED: ADMIXTURE FEE IVPB SCH (07:00)
[2017-11-25] MEDS: Heparin 5,000 UNITS/ML VIAL SC SCH ×2 (09:30→22:03)
[2017-11-25] MEDS: FLUoxetine HCl 20 MG CAP PO SCH (09:31)
[2017-11-25] MEDS: Cyanocobalamin (Vitamin B-12) 1,000 MCG TAB PO SCH (09:31)
[2017-11-25] MEDS: Folic Acid 1 MG TAB PO SCH (09:31)
[2017-11-25] MEDS: Insulin Glargine 10 UNITS in Pre-Filled Syringe 1 EACH SC SCH ×2 (11:38→22:03)
[2017-11-25] MEDS: Sodium Chloride 0.45% 1,000 ML IV SCH (12:37)
[2017-11-25] MEDS ORDERED: Sodium Phosphate 30 MMOL in Sodium Chloride 0.9% 250 ML 250 ML IVPB SCH (16:00)
--- NOTE | 2017-11-25 18:09 | PDOC.CTH ---
Cardiology Progress Note - Subjective Doing better. Awake and answering questions appropriately. - Objective Vital Signs Temp Pulse Resp BP BP Pulse Ox 11/25/17 12:23 97.9 F 97 16 149/85 H 91 L 11/25/17 07:42 98.4 F 93 22 H 157/88 H 92 L Admit Weight 147 lb Weight 152 lb 12.8 oz 11/24/17 11/25/17 11/26/17 06:59 06:59 06:59 Intake Total 731 4382 Output Total 2550 3035 Balance -1819 1347 - Physical Examination General/Neuro: alert & oriented x3, NAD Neck: no JVD present Lungs: CTA, unlabored respirations Heart: RRR Abdomen: NT/ND Extremities: + edema B (1+) - Telemetry Telemetry Rhythm: NSR - Labs Result Diagrams: 11/25/17 05:14 11/25/17 05:14 Troponin/CKMB Troponin I 0.646 ng/mL (< 0.028) H* 11/23/17 13:29 - Assessment/Plan 1. DKA. 2. NSTEMI, demand ischemia from DKA. 3. CARLTON, improving. 4. Substance abuse PLAN: - Continue Therapies for DKA. - CV stable. Echo pending.
--- NOTE | 2017-11-25 18:55 | PRG ---
DATE OF SERVICE: 11/25/2017 SUBJECTIVE: Patient was seen and examined at bedside and overnight events noted. Patient denies any shortness of breath or chest pain or palpitation. No history of nausea or vomitin g or diarrhea or fever or chills or cramps. OBJECTIVE: GENERAL: This is a well-built male, in no apparent distress. VITAL SIGNS: Temperature 97.9, pulse 97, respiratory rate 16, blood pressure 149/85. HEENT: Atraumatic, normocephalic. Oral mucosa is moist. NECK: Supple. CARDIOVASCULAR: S1 and S2 heard. Rate and rhythm regular. RESPIRATORY: Clear to auscultation. GASTROINTESTINAL: Abdomen is soft. MUSCULOSKELETAL: No tenderness. No edema. DERMATOLOGIC: No skin rash. NEUROLOGIC: Alert and awake and oriented x3. No focal neurologic deficits. Moving all the extremit ies. PSYCHIATRIC: Mood and affect normal. LABORATORY DATA: Potassium 5.2, BUN 36, creatinine is 1.5, phosphorus is 1.7. ASSESSMENT AND PLAN: 1. Acute kidney injury. Creatinine is getting better. 2. Hypophosphatemia, replaced. 3. Hypertension. 4. Edema. 5. Diabetic ketoacidosis. 6. Substance abuse, counseled. 7. We will continue on supportive care as tolerated.
--- NOTE | 2017-11-25 19:07 | PDOC.PN ---
- Subjective Encounter Start Date: 11/25/17 Encounter Start Time: 10:00 Patient seen and examined for DKA. No new complaints. No overnight events - Objective Resuscitation Status: Resuscitation Status FULL:Full Resuscitation MAR Reviewed: Yes Vital Signs & Weight: Vital Signs (12 hours) Temp Pulse Resp BP BP Pulse Ox 11/25/17 16:37 98.2 F 96 18 178/108 H 96 11/25/17 12:23 97.9 F 97 16 149/85 H 91 L 11/25/17 07:42 98.4 F 93 22 H 157/88 H 92 L Weight Admit Weight 147 lb Weight 152 lb 12.8 oz Most Recent Monitor Data Heart Rate from ECG 100 NIBP 140/84 NIBP BP-Mean 102 Respiration from ECG 19 SpO2 92 I&O: 11/24/17 11/25/17 11/26/17 06:59 06:59 06:59 Intake Total 731 4382 Output Total 2550 3035 2500 Balance -1819 1347 -2500 Result Diagrams: 11/25/17 05:14 11/25/17 05:14 Additional Labs: Accuchecks 11/25/17 11/25/17 11/25/17 16:39 11:59 08:09 POC Glucose 165 H 198 H 218 H 11/25/17 11/25/17 11/24/17 04:36 00:11 20:21 POC Glucose 199 H 277 H 283 H EKG Reviewed by me: Yes (Tele SR) Phys Exam - Physical Examination Constitutional: NAD Respiratory: no wheezing, no rhonchi Cardiovascular: RRR, no rub Gastrointestinal: soft, non-tender, positive bowel sounds Musculoskeletal: no edema Neurological: moves all 4 limbs Dx/Plan - Plan DVT proph w/SCDs IMPRESSION: 1. DKA 2. Elevated troponins due to demand ischemia 3. CARLTON 4. Polysubstance abuse 5. Hypophosphatemia / Hyperkalemia/ Other issues per previous notes PLAN: Change IVF to 1/2 NS Cont current dose of Lantus and sliding scale AM labs Ambulate Cont to monitor Replace Phosphorus Review of Systems - Review of Systems Respiratory: negative: Cough, Dry, Shortness of Breath, Hemoptysis, SOB with Excertion, Pleuritic Pain, Sputum, Wheezing Cardiovascular: negative: chest pain, palpitations, orthopnea, paroxysmal nocturnal dyspnea, edema, light headedness, other - Medications/Allergies Allergies/Adverse Reactions: Allergies Allergy/AdvReac Type Severity Reaction Status Date / Time clindamycin Allergy Verified 11/23/17 17:31 STERIODS Allergy Severe THROAT Uncoded 11/24/17 07:07 CLOSES UP, PER PT Medications: Current Medications Acetaminophen (Tylenol) 650 mg PO Q4H PRN PRN Reason: Headache/Fever or Pain Artificial Tears (Tears Naturale) 0 drop EA EYE PRN PRN PRN Reason: Dry Eyes Cyanocobalamin (Vitamin B-12) 1,000 mcg PO DAILY [facility] Last Admin: 11/25/17 09:31 Dose: 1,000 mcg Dextrose/Water (Dextrose 50%) 25 gm SLOW IVP PRN PRN PRN Reason: Hypoglycemia Fluoxetine HCl (Prozac) 40 mg PO DAILY [facility] Last Admin: 11/25/17 09:31 Dose: 40 mg Folic Acid (Folvite) 1 mg PO DAILY [facility] Last Admin: 11/25/17 09:31 Dose: 1 mg Glucagon (Glucagon) 1 mg IM PRN PRN PRN Reason: Hypoglycemia Guaifenesin (Robitussin Sf) 200 mg PO Q4H PRN PRN Reason: Cough Heparin Sodium (Porcine) (Heparin) 5,000 units SC BID [facility] Last Admin: 11/25/17 09:30 Dose: 5,000 units Insulin Glargine 10 units/ (Miscellaneous Medication) 0.1 mls @ 0 mls/hr SC HS [facility] Last Admin: 11/24/17 21:53 Dose: 0.1 mls Insulin Glargine 10 units/ (Miscellaneous Medication) 0.1 mls @ 0 mls/hr SC QAM [facility] Last Admin: 11/25/17 11:38 Dose: 0.1 mls Dextrose/Water (D5w) 1,000 mls @ 0 mls/hr IV .Q0M PRN PRN Reason: Hypoglycemia Sodium Chloride (1/2 Normal Saline) 1,000 mls @ 100 mls/hr IV .Q10H [facility] Last Admin: 11/25/17 12:37 Dose: 1,000 mls Sodium Phosphate 30 mmol/ (Sodium Chloride) 260 mls @ 65 mls/hr IVPB 1600 [facility] Stop: 11/25/17 20:00 Last Admin: 11/25/17 16:37 Dose: 260 mls Insulin Human Lispro (Humalog) 0 units SC .AGGRESSIVE SLIDING PRN PRN Reason: Aggressive Correctional Scale Last Admin: 11/25/17 09:31 Dose: 6 unit Insulin Human Lispro (Humalog) 0 units SC .BEDTIME SLIDING SC PRN PRN Reason: Bedtime Correctional Scale Last Admin: 11/25/17 00:15 Dose: 3 unit Loperamide HCl (Imodium) 2 mg PO PRN PRN PRN Reason: Diarrhea/Loose Stools Loratadine (Claritin) 10 mg PO DAILYPRN PRN PRN Reason: Sinus Symptoms Metoclopramide HCl (Reglan) 5 mg IVP Q4H PRN PRN Reason: Nausea Mineral Oil/White Petrolatum (Eucerin Cream) 0 gm TOP BIDPRN PRN PRN Reason: Dry Skin Ondansetron HCl (Zofran Odt) 4 mg PO Q6H PRN PRN Reason: Nausea/Vomiting Ondansetron HCl (Zofran) 4 mg IVP Q6H PRN PRN Reason: Nausea/Vomiting Last Admin: 11/25/17 04:32 Dose: 4 mg Pantoprazole Sodium (Protonix) 40 mg PO DAILY [facility] Last Admin: 11/25/17 09:31 Dose: 40 mg Phenol (Chloraseptic [place] 180 Ml Bot) 0 ml PO PRN PRN PRN Reason: Sore Throat Senna (Senokot) 2 tab PO HSPRN PRN PRN Reason: Constipation Sodium Chloride ([place] Nasal [place] 0.65%) 0 ml EA NARE QIDPRN PRN PRN Reason: Nasal Congestion Sodium Chloride (Flush - Normal Saline) 10 ml IVF Q12HR [facility] Last Admin: 11/25/17 09:31 Dose: 10 ml Sodium Chloride (Flush - Normal Saline) 10 ml IVF PRN PRN PRN Reason: Saline Flush Thiamine HCl (Thiamine) 100 mg PO DAILY [facility] Last Admin: 11/25/17 09:31 Dose: 100 mg
[2017-11-26] MEDS: Sodium Chloride 0.45% 1,000 ML IV SCH ×2 (02:25→09:26)
[2017-11-26 05:34] LABS: Anion Gap 9 mmol/L (10-20); BUN (Urea Nitrogen) 19 mg/dL (8.9-20.6); Calc. Creatinine Clearance 85 mL/min (70-130); Calcium 8.6 mg/dL (7.8-10.44); Carbon Dioxide 31 mmol/L (22-29); Chloride 101 mmol/L (98-107); Estimated GFR-MDRD 71; Glucose 219 mg/dL (70-105); Magnesium 1.7 mg/dL (1.6-2.6); Phosphorus 2.4 mg/dL (2.3-4.7); Potassium 3.9 mmol/L (3.5-5.1); Sodium 137 mmol/L (136-145)
[2017-11-26] MEDS ORDERED: Sodium Chloride 0.45% 1,000 ML IV SCH (08:34)
[2017-11-26] MEDS ORDERED: hydrALAZINE 20 MG/ML VIAL SLOW IVP PRN (08:34)
[2017-11-26] MEDS: FLUoxetine HCl 20 MG CAP PO SCH (09:02)
[2017-11-26] MEDS: Insulin Glargine 10 UNITS in Pre-Filled Syringe 1 EACH SC SCH ×2 (09:02→21:37)
[2017-11-26] MEDS: NIFEdipine XL 30 MG TAB PO SCH (09:03)
[2017-11-26] MEDS: Folic Acid 1 MG TAB PO SCH (09:03)
[2017-11-26] MEDS: Cyanocobalamin (Vitamin B-12) 1,000 MCG TAB PO SCH (09:03)
[2017-11-26] MEDS: Heparin 5,000 UNITS/ML VIAL SC SCH ×2 (09:04→21:37)
[2017-11-26] MEDS: HumaLOG 300 UNITS/3 ML VIAL SC PRN ×4 (09:10→21:42)
--- NOTE | 2017-11-26 16:20 | DIS ---
DATE OF DISCHARGE: 11/26/2017 DISCHARGE DISPOSITION: Home. FOLLOWUP: 1. Follow up with primary care physician at [facility] in 1 week. 2. Follow up with Cardiology, Dr. Weiner in 1 week. DISCHARGE MEDICATIONS: Procardia XL 30 mg daily, Protonix 40 mg daily, aspirin 81 mg daily, clonidin e 0.1 mg twice daily as needed for systolic blood pressure more than 20, Prozac 40 mg daily, Novolin 70/30 of 15 units b.i.d. with meals. BRIEF HOSPITAL COURSE: The patient is a 37-year-old male with polysubstance abuse, diabetes mellitus type 1 on insulin, presented to the hospital with altered mentation along with elevated blood sugar. He was recently released from the intermediate. Please refer to the history and physical for further det ails. The patient was admitted to the hospital with a diagnosis of diabetic ketoacidosis. His bicarbonate was less than 8 with blood glucose in the ER was 1586, creatinine of 4.8 with elevated troponins and elevated lactic acid. Please refer to the history and physical for further details. His urine drug screen was also positive for methamphetamines and ketones was 4.0. The patient was admitted to the Intensive Care Unit with a diagnosis of toxic metabolic encephalopath y secondary to acute kidney injury with diabetic ketoacidosis and severe metabolic acidosis. He also had severe several electrolyte abnormalities. The patient was seen by Nephrology, Critical Care, as well as Cardiology due to elevated troponins. His gap later closed. He was then transferred to the telemetry unit. Echocardiogram was obtained that showed ejection fraction 50% to 55% with normal di astolic dysfunction, mild mitral regurgitation and mild tricuspid regurgitation, and mild pulmonic re gurgitation. His renal function has significantly improved. On the day of discharge his ketones is 0.21. He will be discharged later today if cleared by Cardiology. DIAGNOSTIC TESTS: 1. WBC on admission 29.9, at discharge 11.1. 2. ABG showed pH 7.16 with pCO2 of 32.9, pO2 of 84.2. 3. Hepatitis profile was negative. FINAL DIAGNOSES: 1. Toxic metabolic encephalopathy. 2. Diabetic ketoacidosis secondary to noncompliance. 3. History of diabetes mellitus type 1. 4. Elevated troponin secondary to demand ischemia. Echocardiogram showed normal left ventricular ej ection fraction with normal diastolic dysfunction. 5. Acute kidney injury secondary to diabetic ketoacidosis. His creatinine on admission was 5.93, at discharge is 1.1. Lisinopril has been discontinued for now. 6. Hypertension. 7. Metabolic acidosis secondary to lactic acidosis as well as diabetic ketoacidosis. Lactic acid wa s 3.9. 8. Hyponatremia. 9. Hyperkalemia with potassium 8.2 on admission. 10. Rhabdomyolysis with CK of 3611 on admission. 11. Hyperphosphatemia. 12. Hyponatremia. 13. Chronic anemia. 14. Methamphetamine abuse. 15. Severe dehydration. 16. Hypophosphatemia, corrected. Plan of care was discussed with the patient in detail, he stated understanding. Total time coordinating the discharge of this patient was 40 minutes.
--- NOTE | 2017-11-26 18:19 | PRG ---
DATE OF SERVICE: 11/26/2017 SUBJECTIVE: Patient was seen and examined at bedside and overnight events noted. Patient denies any shortness of breath or chest pain or palpitation. No history of nausea or vomiting or diarrhea or fever or chills or cramps. OBJECTIVE: GENERAL: This is a well-built male in no apparent distress. VITAL SIGNS: Temperature 98.7, pulse 80, respiratory rate 18, blood pressure 168/99. HEENT: Atraumatic, normocephalic. Oral mucosa is moist. NECK: Supple. CARDIOVASCULAR: S1, S2 heard. Rate and rhythm regular. RESPIRATORY: Clear to auscultation. GASTROINTESTINAL: Abdomen is soft. MUSCULOSKELETAL: No tenderness. No edema. DERMATOLOGIC: No skin rash. NEUROLOGIC: Alert and awake and oriented x3. No focal neurologic deficits. Moving all the extremities. PSYCHIATRIC: Mood and affect normal. LABORATORY DATA: Potassium 3.9, BUN 19, creatinine 1.1. ASSESSMENT AND PLAN: 1. Acute kidney injury. Creatinine much better. 2. Hypophosphatemia, replaced. 3. Edema. 4. Diabetic ketoacidosis. 5. Substance abuse. MTDD
[2017-11-27] MEDS: HumaLOG 300 UNITS/3 ML VIAL SC PRN (01:12)
[2017-11-27 05:48] LABS: Anion Gap 12 mmol/L (10-20); BUN (Urea Nitrogen) 17 mg/dL (8.9-20.6); Calc. Creatinine Clearance 91 mL/min (70-130); Calcium 9.5 mg/dL (7.8-10.44); Carbon Dioxide 31 mmol/L (22-29); Chloride 97 mmol/L (98-107); Estimated GFR-MDRD 86; Glucose 188 mg/dL (70-105); Potassium 3.8 mmol/L (3.5-5.1); Sodium 136 mmol/L (136-145)
[2017-11-27 09:27] VITALS: BP 136/88; TEMP 98.4
[2017-11-27] MEDS: Folic Acid 1 MG TAB PO SCH (09:29)
[2017-11-27] MEDS: Cyanocobalamin (Vitamin B-12) 1,000 MCG TAB PO SCH (09:29)
[2017-11-27] MEDS: Heparin 5,000 UNITS/ML VIAL SC SCH (09:30)
[2017-11-27] MEDS: FLUoxetine HCl 20 MG CAP PO SCH (09:30)
[2017-11-27] MEDS: NIFEdipine XL 30 MG TAB PO SCH (09:30)
[2017-11-27] MEDS: Insulin Glargine 10 UNITS in Pre-Filled Syringe 1 EACH SC SCH (09:38)
--- NOTE | 2017-11-27 20:52 | PRG ---
DATE OF SERVICE: 11/27/2017 SUBJECTIVE: Patient was seen and examined at bedside and overnight events noted. Patient denies any shortness of breath or chest pain or palpitation. No history of nausea or vomiting or diarrhea or f ever or chills or cramps. OBJECTIVE: GENERAL: This is a well-built male, in no apparent distress. VITAL SIGNS: Temperature 98.4, pulse , blood pressure 136/88. HEENT: Atraumatic, normocephalic. Oral mucosa is moist. NECK: Supple. CARDIOVASCULAR: S1, S2 heard. Rate and rhythm regular. RESPIRATORY: Clear to auscultation. GASTROINTESTINAL: Abdomen is soft. MUSCULOSKELETAL: No tenderness. No edema. DERMATOLOGIC: No skin rash. NEUROLOGIC: Alert and awake and oriented x3. No focal neurologic deficits. Moving all the extremit ies. PSYCHIATRIC: Mood and affect normal. LABORATORY DATA: Potassium is 3.8, BUN , creatinine 0.9. ASSESSMENT AND PLAN: 1. Acute kidney injury. Creatinine is stable. 2. Hypophosphatemia, replace. 3. Substance abuse. 4. Diabetic ketoacidosis. 5. Edema. 6. Hyperkalemia, better. 7. Overall better. I will sign off.
== END 2017-11-27 11:58 | disposition home or self-care (01) | DRG 682 ==
LOC: ERS 10:06 → CCU 11:43 → 2NO 11-24 15:34
PROVIDERS: ADMIT Internal Medicine; ATTEND Internal Medicine
DX: N17.9 Acute kidney failure, unspecified (principal); E13.00 Other specified diabetes mellitus with hyperosmolarity without nonketotic hyperglycemic-hyperosmolar coma (NKHHC); G92 Toxic encephalopathy; I24.8 Other forms of acute ischemic heart disease; E87.1 Hypo-osmolality and hyponatremia; M62.82 Rhabdomyolysis; I95.9 Hypotension, unspecified; F15.10 Other stimulant abuse, uncomplicated; Z88.8 Allergy status to other drugs, medicaments and biological substances; Z79.899 Other long term (current) drug therapy; E87.5 Hyperkalemia; E86.0 Dehydration; E83.39 Other disorders of phosphorus metabolism; Z91.14 Patient's other noncompliance with medication regimen; R94.5 Abnormal results of liver function studies; F32.9 Major depressive disorder, single episode, unspecified; F41.9 Anxiety disorder, unspecified; K21.9 Gastro-esophageal reflux disease without esophagitis; D53.9 Nutritional anemia, unspecified
CPT/HCPCS: 36415; 36416; 76770; 80048; 80074; 82010; 82330; 82803; 82805; 83036; 83605; 83735; 84100; 85025; 93005; 93306; 96360; 96361; 96365; 96366; A4216; C9113; J1644; J1815; J2405; J3480; J7050; J7120